=== PATIENT | male | born 1955 | race Caucasian/White ===

== ENCOUNTER 2023-04-30 05:55 | Day surgery (SDC) | payer OTHER, SELFPAY ==
--- NOTE | 2023-04-04 10:36 | CM ---
Patient is scheduled for an elective R TKR on 04/30/23- he is a same day patient. Spoke with patient prior to surgery. Introduced role of Orthopedic Navigator. Patient reports that he lives with his daughter, son-in-law, granddaughter, her boyfriend
and great granddaughter in a two story home. He currently functions independently. He has no DME and has never had VN services. PCP is Yamileth Miranda.
Discussed orthopedic program and post surgical plans. Reviewed that he will have VN services initially (medicare.gov website and ratings reviewed) and will then start outpatient PT. Patient selects [facility]N (face sheet faxed to [facility] to facilitate
confirmation of benefits) for his home care needs and will go to [facility] for outpatient PT.
Patient is in agreement with plan and states that he will be going to his ybawac-jr-viv's home (two story with two steps to enter and a flight to the second floor). His [id number] will be home with him.
Patient will complete online education.
Plan: Orthopedic Navigator will remain available to assist with the care of patient and will reassess discharge needs after surgery
[2023-04-12 10:07] VITALS: BMI 32.7
[2023-04-12 10:58] LABS: Hematocrit 42.6 % (39.0-52.0); Hemoglobin 14.5 g/dL (13.0-18.0); Mean Corpuscular Hgb 29.4 pg (27.0-31.0); Mean Corpuscular Volume 86.4 fL (80.0-94.0); Mean Platelet Volume 9.8 fL (7.4-10.4); Platelet Count 379 10^3/uL (130-400); Red Blood Cell Count 4.93 10^6/uL (4.70-6.10); Red Cell Dist. Width 12.8 % (11.5-14.5)
[2023-04-12 11:08] LABS: ALT (SGPT) 28 U/L (0-50); AST (SGOT) 28 U/L (17-59); Albumin 4.2 g/dl (3.5-5.0); Alkaline Phosphatase 102 U/L (38-126); Blood Urea Nitrogen 17 mg/dl (9-20); Calcium 9.1 mg/dl (8.4-10.2); Carbon Dioxide 27 mmol/L (22-30); Chloride 106 mmol/L (98-107); Estimated Creatinine Clearance 81 ml/min; Glucose 107 mg/dl (70-99); Sodium 138 mmol/L (135-145); Total Bilirubin 0.5 mg/dl (0.2-1.3); Total Protein 6.9 g/dl (6.3-8.2); eGFR > 60.00
[2023-04-12 14:20] LABS: Glycohemoglobin (HgbA1c) 6.2 % (4.0-5.6)
[2023-04-12 16:22] VITALS: BMI 32.7
[2023-04-30] VITALS (13 sets, daily range): BP systolic 116–162; BP diastolic 68–91; BMI 32.7
[2023-04-30] MEDS: TYLENOL 650 MG PO (06:23)
[2023-04-30] MEDS: CELEBREX 200 MG PO (06:23)
[2023-04-30] MEDS: NORMOSOL-R 1000 IV (06:24)
[2023-04-30] MEDS: BACTROBAN NASAL 1 GRAM NASAL (06:25)
--- NOTE | 2023-04-30 10:06 | CM ---
Patient had planned R TKR today. Met with patient at bedside to review discharge plans. Patient will be returning home today with services through [facility]. On , 05/03, patient will start outpatient PT at [facility]. Reviewed MD follow up in two
weeks and patient is aware of need to schedule appointment.
Patient will need a rolling walker issued prior to discharge today. Script obtained and given to RN for PT.
PT and [facility] were kept updated as to progress and discharge plans.
[2023-04-30] MEDS: ROXICODONE 5 MG PO (10:41)
[2023-04-30] MEDS: ANCEF 5 IV (10:59)
== END 2023-04-30 11:47 | disposition home health service (06) ==
LOC: SDS 05:55
PROVIDERS: ATTENDING PHYSICIAN Specialist; FAMILY PHYSICIAN Nurse Practitioner; OTHER PHYSICIAN Physician Assistant
DX: M17.11 Unilateral primary osteoarthritis, right knee (principal)
CPT/HCPCS: 27447; 36415; 73560; 80053; 83036; 85027; 87070; 93005; 97162; C1776

== ENCOUNTER 2023-05-02 08:35 | Emergency (ER) | payer OTHER, SELFPAY ==
[2023-05-02 08:38] VITALS: BP 124/112; BMI 31.4
[2023-05-02 08:44] VITALS: BP 124/112
--- NOTE | 2023-05-02 08:51 | ED.GENMED ---
History of Present Illness
General
Chief Complaint: Dizziness
Source: patient
Time Seen by Provider: 05/02/23 08:41
Travel History
Have you had any contact with someone who has COVID-19?: No
Do you have any symptoms of coronavirus? Fever > 100 degrees, chills, cough, shortness of breath, sore throat, loss of taste or smell, muscle aches, or headache?: No
History of Present Illness
History of Present Illness:
This patient is a 67-year-old male who had an uneventful knee replacement on Sunday and has been recovering well at home. This morning, he got up to use the restroom and when he went to sit down he noticed that he started to feel dizzy described as
lightheadedness associated with diaphoresis. This lasted about 15 minutes and then resolved completely. He says he feels 'fine' at this time with the exception of his expected right knee pain. He denies having any chest pain or pressure,
headache, neck pain, numbness, tingling, focal weakness, fever, chills, abdominal pain, focal weakness, change in vision, vertigo, or other complaints.
Past History
Past History
ED Past Medical History: HTN and Hypercholesterolemia
ED Past Surgical History: Orthopedic
Social History
Tobacco: Former smoker
Alcohol: None
Living: with family
Phy Exam
Physical Exam
Physical Exam:
GENERAL: Alert , in no apparent distress, very pleasant
EYE: pupils equal and reactive
NECK: Supple, no significant adenopathy.
ENT: o/p clr, mmm.
CARDIAC: Regular rate and rhythm .
LUNGS: Clear breath sounds bilaterally, no acute respiratory distress, no wheezes/rales/rhonchi
ABDOMEN: Soft, without focal tenderness, no r/g, no cvat
NEUROLOGICAL: Alert and oriented, no focal neuro deficits
SKIN: Warm and dry, skin intact.
MUSCULOSKELETAL: No edema of L leg, well perfused. R lower leg with expected postop mild edema, dressing in place, no surrounding erythema/drainage
PSYCH: Normal and appropriate interaction.
Course
Orders/Labs/Results
Orders:
Orders
05/02/23 08:49
US Periph Venous LOWER Ext Reginald Urgent
Comment:
Reason For Exam: s/p TKR, now dizzy, diaphoresis
05/02/23 08:50
Electrocardiogram (*1) Stat
Reason for Study: Other
Other Reason for Exam: chest pain
Cardiac Monitoring- Treatment ONCE
EKG- Treatment ONCE
Pulse Ox/cont/shift [RESP] Stat
Quantity: 1
05/02/23 08:55
Complete Blood Count/No Diff Urgent
Comprehensive Metabolic Panel Urgent
Troponin I Urgent
05/02/23 09:51
0.9% Sodium Chloride 500 ml [Nss] 500 ml IV BOLUS
05/02/23 09:57
Ketorolac [Toradol] 15 mg IV NOW STA
05/02/23 11:22
Oxycodone/Acetaminophen [Percocet 5/325] 1 tablet PO NOW STA
Abnormal Lab Results
05/02/23
08:55
WBC 15.6 H 10^3/uL
(4.8-10.8)
RBC 4.16 L 10^6/uL
(4.70-6.10)
Hgb 12.5 L g/dL
(13.0-18.0)
Hct 36.2 L %
(39.0-52.0)
BUN 30 H mg/dl
(9-20)
Glucose 130 H mg/dl
(70-99)
Total Protein 6.2 L g/dl
(6.3-8.2)
05/02/23 08:55
05/02/23 08:55
Vital Signs
Initial and Last Documented VS:
Initial Vital Signs
Temp Pulse Resp BP Pulse Ox
97.5 F 82 18 124/112 97
05/02/23 08:38 05/02/23 08:38 05/02/23 08:38 05/02/23 08:38 05/02/23 08:38
Last Documented Vital Signs
Temp Pulse Resp BP Pulse Ox
97.5 F 85 14 145/69 97
05/02/23 08:38 05/02/23 12:15 05/02/23 12:15 05/02/23 12:00 05/02/23 12:15
*Critical Care Note
Total Time (30-74mins, 75-104mins- exclusive of procedures): Not Applicable
Update Note
Update Note:
Patient presents to the Emergency Department with lightheadedness and diaphoresis
Number and Complexity of Problems Addressed at the Encounter
� Chronic conditions affecting care:
� Acute Exacerbation and/or Progression of Chronic Illness:
� Differential Diagnosis includes: But not limited to vasovagal event, PE, ACS, dehydration, etc.
Amount and/or Complexity of Data to be Reviewed and Analyzed
� I performed an independent evaluation of and my interpretation is:
EKG: Read by me, normal sinus rhythm, normal rate, normal axis, no acute ischemia
CT:
Xrays:
Laboratory Studies: Generally unremarkable
Other: Ultrasound bilateral lower extremities unremarkable
� Review of other/old records reveals:
� Clinical information was obtained by an independent historian: [id number] who is bedside
� Prescriptions/Medications Considered but not given:
� Further testing considered but not performed:
Risk of Complications and/or Morbidity or Mortality of Patient Management
� Social determinants of health affecting care:
� Discussion with other providers (PCP, Hospitalists, Consultants, etc):
� Escalation of care including admission/observation vs risk of discharge considered: 1:24 PM repeat reassessment patient remained stable well-appearing no acute distress. He is hungry and would like to go home. Discussed with
him importance of follow-up and reasons to return to the ER. Suspect this was a vasovagal event, no 'red flag' findings to suggest PE, ACS, etc.
ED Attending Note
-
Portions of this chart may have been created with voice recognition software.� Occasional wrong word or��sound alike� substitutions may have occurred due to the inherent limitations of voice recognition software.
Discharge Plan
Departure
Patient Disposition: Home (Routine Discharge)
Date of Disposition: 05/02/23
Time of Disposition: 13:23
Patient with high blood pressure during this ER visit?: Yes
Condition: Good
Discharge Problem:
Near syncope
Instructions: Near Fainting (DC), BLOOD PRESSURE
Prescriptions:
No Action
simvastatin 40 mg Tablet
40 mg PO HS
Patient Comments:
40mg noted on PCP clearance, pt was unsure of dosage.
sertraline 25 mg Tablet
25 mg PO DAILY
[employer] Magnesium 70mg
1 tab PO BID
oxycodone 5 mg tablet
5 - 10 mg PO Q6H PRN (Reason: moderate-severe pain) Qty: 30 0RF
Rx Instructions:
1 tab for moderate pain, 2 if severe.
Dx total joint.
celecoxib [Celebrex] 200 mg capsule
200 mg PO DAILY Qty: 14 0RF
Rx Instructions:
Take with food.
DO NOT take within 2 hours of Aspirin post-surgery.
dexamethasone 4 mg tablet
4 mg PO BID Qty: 7 0RF
Rx Instructions:
Start night of discharge and take twice a day until finished.
Take with food.
ondansetron HCl 4 mg tablet
4 mg PO Q6H PRN (Reason: nausea and vomiting) Qty: 30 0RF
Rx Instructions:
Can take 1/2 hour prior to Oxycodone if experiencing recurrent nausea.
famotidine [Pepcid] 20 mg tablet
20 mg PO HS Qty: 30 0RF
Rx Instructions:
Take nightly while on Celebrex and Aspirin to prevent GI upset.
mupirocin 2 % ointment
1 applic intranasal BID Qty: 1 0RF
Patient Comments:
started treatment sunday04/27/23 and wa staking BID and last took at home 04/29/22 in evening
potassium 99 mg Tablet
99 mg PO DAILY
aspirin 325 mg tablet
325 mg PO DAILY Qty: 30 0RF
Rx Instructions:
Take daily x4 weeks for blood clot prevention
docusate sodium [Colace] 100 mg capsule
100 mg PO BID Qty: 30 0RF
sennosides [senna] 8.6 mg tablet
17.2 mg PO BID Qty: 30 0RF
acetaminophen 500 mg Tablet
1,000 mg PO Q6H Qty: 60 0RF
Rx Instructions:
DO NOT exceed >4000 mg daily.
telmisartan 80 mg Tablet
80 mg PO DAILY Qty: 0 0RF
Rx Instructions:
HOLD IF systolic blood pressure <130 while on Oxycodone.
Referrals:
Yamileth Miranda CRNP [Family Provider] - Next open appointment
Activity Restrictions/Additional Instructions:
IF YOU DEVELOP DIZZINESS, CHEST PAIN, SHORTNESS OF BREATH, FEVER, VOMITING, VISUAL CHANGES, OR OTHER WORRISOME SIGNS, PLEASE RETURN TO THE ER IMMEDIATELY.
Interventions
Interventions:
*Risk Screen - Suicide Last Done: 05/02/23 08:38
*General Assessment Last Done: 05/02/23 08:38
*Neglect/Abuse Screening Last Done: 05/02/23 08:38
ED- Fall Risk Assessment Last Done: 05/02/23 09:46
*ED COVID-19 Vaccine History Last Done: 05/02/23 08:38
ED- Neurological Assessment Last Done: 05/02/23 08:38
[2023-05-02 09:00] VITALS: BP 126/63
[2023-05-02 09:09] LABS: Hematocrit 36.2 % (39.0-52.0); Hemoglobin 12.5 g/dL (13.0-18.0); Mean Corp Hgb Conc. 34.5 g/dL (33.0-37.0); Mean Platelet Volume 9.6 fL (7.4-10.4); Platelet Count 276 10^3/uL (130-400); Red Blood Cell Count 4.16 10^6/uL (4.70-6.10); Red Cell Dist. Width 13.7 % (11.5-14.5); White Blood Cell Count 15.6 10^3/uL (4.8-10.8)
[2023-05-02 09:26] LABS: ALT (SGPT) 27 U/L (0-50); AST (SGOT) 35 U/L (17-59); Albumin 3.7 g/dl (3.5-5.0); Alkaline Phosphatase 56 U/L (38-126); Blood Urea Nitrogen 30 mg/dl (9-20); Calcium 8.9 mg/dl (8.4-10.2); Carbon Dioxide 23 mmol/L (22-30); Chloride 102 mmol/L (98-107); Estimated Creatinine Clearance 86 ml/min; Glucose 130 mg/dl (70-99); Potassium 4.1 mmol/L (3.5-5.1); Sodium 137 mmol/L (135-145); Total Bilirubin 0.8 mg/dl (0.2-1.3); Total Protein 6.2 g/dl (6.3-8.2); eGFR > 60.00
[2023-05-02 09:35] LABS: Troponin I < 0.012 ng/ml
[2023-05-02 11:00] VITALS: BP 135/59
[2023-05-02] MEDS: NSS 500 IV (11:00)
[2023-05-02] MEDS: TORADOL 15 MG IV (11:00)
[2023-05-02] MEDS: PERCOCET 5/325 1 TABLET PO (11:28)
[2023-05-02 12:00] VITALS: BP 145/69
[2023-05-02 13:00] VITALS: BP 128/67
== END 2023-05-02 13:35 | disposition home or self-care (01) ==
LOC: EMR 08:35
PROVIDERS: EMERGENCY PHYSICIAN Emergency Medicine; FAMILY PHYSICIAN Nurse Practitioner
DX: R55 Syncope and collapse (principal); R42 Dizziness and giddiness; R61 Generalized hyperhidrosis; I10 Essential (primary) hypertension; Z87.891 Personal history of nicotine dependence
CPT/HCPCS: 99285; 96374; 80053; 84484; 85027; 93005; 93970